=== PATIENT | male | born 1980 | race Caucasian/White ===

== ENCOUNTER → 2023-11-10 | Outpatient (CLI) | payer OTHER | END | disposition home or self-care (01) | LOC: RADMN 14:46 | PROVIDERS: ATTEND Chiropractor | DX: M47.815 Spondylosis without myelopathy or radiculopathy, thoracolumbar region (principal); M51.36 Other intervertebral disc degeneration, lumbar region; M84.40XA Pathological fracture, unspecified site, initial encounter for fracture | CPT/HCPCS: 72100; 73000-TC; 73130-TC ==